=== PATIENT | male | born 1970 | race Caucasian/White ===

== ENCOUNTER 2022-01-24 11:31 | Emergency (ER) | payer OTHER ==
[2022-01-24 12:52] LABS: HEMOGLOBIN 17.5 gm/dl (14.0-17.5); RED BLOOD COUNT 5.63 M/UL (4.20-5.50); WHITE BLOOD COUNT 11.6 K/UL (4.5-11.0)
[2022-01-24 13:12] LABS: BUN/CREATININE RATIO 19 (0-10)
[2022-01-24] MEDS ORDERED: IMODIUM CAP 2 MG2 MG PO ×2 (14:57→15:03)
[2022-01-24] MEDS ORDERED: ONDANSETRON ODT4 MG SL ×2 (14:57→15:03)
[2022-01-25 09:14] LABS: HBSAG SCREEN Negative (Negative); HEP A AB, IGM Negative (Negative); HEP B CORE AB, IGM Negative (Negative); HEP C VIRUS AB 0.1 (0.0-0.9)
== END 2022-01-24 15:30 | disposition home or self-care (01) ==
LOC: ER1 11:31
PROVIDERS: Physician Assistant
DX: N28.9 Disorder of kidney and ureter, unspecified (principal); J18.9 Pneumonia, unspecified organism; K76.89 Other specified diseases of liver; D73.89 Other diseases of spleen; I10 Essential (primary) hypertension; Z91.041 Radiographic dye allergy status
CPT/HCPCS: 80053; 80074; 81001; 83690; 85025; 96374; 99284; J2405